=== PATIENT | female | born 1945 | race Caucasian/White ===

== ENCOUNTER → 2016-12-09 | Day surgery (SDC) | payer MEDICARE | DX: D50.9 Iron deficiency anemia, unspecified (principal) | CPT/HCPCS: 91110 ==

== ENCOUNTER 2018-07-24 12:44 | Emergency (ER) | payer MEDICARE ==
[2018-07-24 13:03] VITALS: BP 132/87; PULSE 71; RESP 18; TEMP 98.2
--- NOTE | 2018-07-24 14:11 | XR ---
EXAMINATION TYPE: XR KUB DATE OF EXAM: 07/24/2018 COMPARISON: NONE HISTORY: Constipation TECHNIQUE: 2 views upright FINDINGS: There is no sign of intestinal obstruction or pneumoperitoneum. Fecal pattern is normal. Th ere is infiltrate and pleural fluid at the right lung base. There are no pathologic calcifications. H eart is enlarged. IMPRESSION: Right pleural effusion and right basilar pulmonary infiltrate. Nonacute abdomen.
[2018-07-24] MEDS ORDERED: DOCUSATE 283 MG/5 ML ENEMA RECTAL STA (14:13)
--- NOTE | 2018-07-24 14:50 | ED ---
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 Patient reports that she was recently prescribed opioid pain medication and has not had a bowel movement 3 days. Patient denies any other complaints. Patient denies any abdominal pain. Patient had no chest pain shortness of breath or any difficulty breathing. Patient denies any cough or congestion. Systemic: Pt denies fatigue, myalgia, fever/chills, rash. Pt denies weakness, night sweats, weight loss. Neuro: Pt denies headache, visual disturbances, syncope or pre-syncope. HEENT: Pt denies ocular discharge or irritation, otalgia, rhinorrhea, pharyngitis or notable lymphadenopathy. Cardiopulmonary: Pt denies chest pain, SOB, heart palpitations, dyspnea on exertion. Abdominal/GI: Pt denies abdominal pain, n/v/d. : Pt denies dysuria, burning w/ urination, frequency/urgency. Denies new onset urinary or bowel incontinence. MSK: Pt denies myalgia, loss of strength or function in extremities. Neuro: Pt denies new onset weakness, paresthesias. - Related Data Home Medications Medication Instructions Recorded Confirmed Apixaban [Eliquis] 5 mg PO BID 12/08/16 12/08/16 Aspirin [Adult Low Dose Aspirin EC] 81 mg PO DAILY 12/08/16 12/08/16 Atorvastatin [Lipitor] 40 mg PO HS 12/08/16 12/08/16 Cranberry (Unsure Dose) 1 tab PO DAILY 12/08/16 Diltiazem Cd [Cardizem Cd] 240 mg PO DAILY 12/08/16 12/08/16 Metoprolol Tartrate [Lopressor] 12.5 mg PO BID 12/08/16 12/08/16 Multivitamins, Thera [Multivitamin 1 tab PO DAILY 12/08/16 12/08/16 (formulary)] Pantoprazole Sodium [Protonix] 40 mg PO DAILY 12/08/16 12/08/16 Vitamin B12 (Unsure Dose) 1 tab PO DAILY 12/08/16 Previous Rx's Medication Instructions Recorded Magnesium Citrate [Citrate of 150 mg PO Q24HR PRN #1 bottle 07/24/18 Magnesia] Allergies Allergy/AdvReac Type Severity Reaction Status Date / Time No Known Allergies Allergy Verified 07/24/18 13:03 Review of Systems ROS Statement: Those systems with pertinent positive or pertinent negative responses have been documented in the HPI. ROS Other: All systems not noted in ROS Statement are negative. Past Medical History Past Medical History: Blood Disorder, Cancer, CVA/TIA, Hyperlipidemia, Hypertension Additional Past Medical History / Comment(s): CVA X3, TIA X6 - RT FOOT NT, SL WEAKNESS RT SIDE. ANEMIA. HAD 2 UNITS BLOOD, 2 IRON INFUSION IN PAST WEEK, lung ca History of Any Multi-Drug Resistant Organisms: None Reported Additional Past Surgical History / Comment(s): DOUBLE AORTO-FEMORAL BYPASS. COLONOSCOPY, EGD. lung removal rt side, pace maker Past Anesthesia/Blood Transfusion Reactions: No Reported Reaction Past Psychological History: No Psychological Hx Reported Smoking Status: Former smoker Past Alcohol Use History: None Reported Past Drug Use History: None Reported - Past Family History Mother Family Medical History: Cancer General Exam - General Exam Comments Initial Comments: Constitutional: NAD, AOX3, Pt has pleasant affect. HEENT: NC/AT, trachea midline, neck supple, no lymphadenopathy. Posterior pharynx non erythematous, without exudates. External ears appear normal, without discharge. Mucous membranes moist. Eyes PERRLA, EOM intact. There is no scleral icterus. No pallor noted. Cardiopulmonary: RRR, no murmurs, rubs or gallops, no JVD noted. Lungs CTAB in anterior and posterior gracia. No peripheral edema. Abdominal exam: Abdomen soft and non-distended. Abdomen non-tender to palpation in all 4 quadrants. Bowel sounds active in LLQ. No hepatosplenomegaly. No ecchymosis Neuro: CN II-XII grossly intact. No nuchal rigidity. MSK: No posterior calf tenderness bilaterally, homans sign negative bilaterally. Posterior tibialis and radial pulse +2 bilaterally. Sensation intact in upper and lower extremities. Full active ROM in upper and lower extremities, 5/5 stregnth. 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 Patient reports that she was recently prescribed opioid pain medication and has not had a bowel movement 3 days. Patient denies any other complaints. Patient denies any abdominal pain. Patient had no chest pain shortness of breath or any difficulty breathing. Patient denies any cough or congestion. Pt VSS, afebrile. Physical exam displayed nonacute abdomen. KUB displayed right pleural effusion and right basilar pulmonary infiltrate. Nonacute abdomen. Stool noted in colon. Patient was previously aware of pulmonary findings and has outpatient follow-up. Patient had a spontaneous bowel movement while in the ED without intervention. Patient will be discharged to follow up with primary care provider. Patient prescribed magnesium citrate to use only as needed if constipation occurs in the future. Patient recommended to first attempt dietary modifications. Patient return to ER if condition worsens in any way. Case discussed with Dr. Laureano. Disposition Clinical Impression: Constipation Disposition: HOME SELF-CARE Condition: Stable Instructions (If sedation given, give patient instructions): Constipation (ED), High Fiber Diet (ED) Additional Instructions: Patient to adhere to previously discussed treatment plan and will take medication(s) as directed. Patient to follow up with PCP in 1-2 days. Patient to return to ED if symptoms do not improve. Please follow-up with primary care provider. Please return to ER if condition worsens. Prescriptions: Magnesium Citrate [Citrate of Magnesia] 150 mg PO Q24HR PRN #1 bottle PRN Reason: Constipation Is patient prescribed a controlled substance at d/c from ED?: No Referrals: Kandi Suarez MD [Primary Care Provider] - 1-2 days
== END 2018-07-24 15:03 | disposition home or self-care (01) ==
LOC: EC 12:44
DX: K59.00 Constipation, unspecified (principal); E78.5 Hyperlipidemia, unspecified; I10 Essential (primary) hypertension; Z86.73 Personal history of transient ischemic attack (TIA), and cerebral infarction without residual deficits; Z85.118 Personal history of other malignant neoplasm of bronchus and lung; Z85.830 Personal history of malignant neoplasm of bone; Z90.2 Acquired absence of lung [part of]; Z95.0 Presence of cardiac pacemaker; Z87.891 Personal history of nicotine dependence; Z79.01 Long term (current) use of anticoagulants; Z79.82 Long term (current) use of aspirin; Z79.899 Other long term (current) drug therapy; Z53.8 Procedure and treatment not carried out for other reasons
CPT/HCPCS: 74018; 99284